=== PATIENT | male | born 1995 | race Caucasian/White ===

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

== ENCOUNTER 2017-01-04 13:11 | Emergency (ER) | payer BC ==
[~2017-01-04] VITALS: Ht 182.9 cm; Wt 88.0 kg
[~2017-01-04 13:11] MED LIST changes: +AMOXICILLIN500 MG PO; +CLARITIN10 M1 PO
[2017-01-04] MEDS ORDERED: AMOX/K CLAV875 M1 PO (13:26)
[2017-01-04] MEDS ORDERED: PREDNISONE50 MG PO (13:51)
[2017-01-04] MEDS ORDERED: BENADRYL 50MG C50 MG PO (13:51)
[2017-01-04 13:56] VITALS: BP 108/65
== END 2017-01-04 14:14 | disposition home or self-care (01) | DRG 607 ==
LOC: ED 13:11
DX: R21 Rash and other nonspecific skin eruption (principal); R16.1 Splenomegaly, not elsewhere classified; T36.0X5A Adverse effect of penicillins, initial encounter

== ENCOUNTER 2017-09-25 14:47 | Emergency (ER) | payer OTHER, BC ==
[~2017-09-25] VITALS: Ht 182.9 cm; Wt 97.8 kg
[~2017-09-25 14:47] MED LIST changes: +AMOX/K CLAV875 M1 PO; +PREDNISONE50 MG PO
[2017-09-25] MEDS ORDERED: FLEXERIL PO (15:49)
[2017-09-25] MEDS ORDERED: MOTRIN800 MG PO (15:49)
[2017-09-25 15:53] VITALS: BP 122/77
== END 2017-09-25 15:53 | disposition home or self-care (01) | DRG 563 ==
LOC: ED 14:47
DX: S29.012A Strain of muscle and tendon of back wall of thorax, initial encounter (principal); X50.9XXA Other and unspecified overexertion or strenuous movements or postures, initial encounter; Y93.89 Activity, other specified; Y92.89 Other specified places as the place of occurrence of the external cause; Y99.0 Civilian activity done for income or pay

== ENCOUNTER 2021-01-06 20:27 | Emergency (ER) | payer BC ==
[~2021-01-06 20:27] MED LIST changes: +FLEXERIL PO
[2021-01-06] MEDS ORDERED: VOLTAREN75 MG PO (21:37)
[2021-01-06 21:47] VITALS: BP 155/75
== END 2021-01-06 21:48 | disposition home or self-care (01) | DRG 563 ==
LOC: ED 20:27
DX: S63.502A Unspecified sprain of left wrist, initial encounter (principal); X50.0XXA Overexertion from strenuous movement or load, initial encounter; Y92.89 Other specified places as the place of occurrence of the external cause; Y99.0 Civilian activity done for income or pay